=== PATIENT | female | born 1940 | race Caucasian/White ===

== ENCOUNTER → 2016-08-26 | Outpatient (CLI) | payer OTHER ==
[~2016-08-26] MED LIST: 'XANAX0.25 MG PO; ASPIRIN81 M1 PO; BENADRYL25 M1 PO; BENADRYL25 M2 PO; BENADRYL50 MG PO; CLARITIN10 MG PO; DIPHENHYDRAMINE25 M2 PO; DOXYCYCLINE MO100 M1 PO; LEVAQUIN750 MG PO; MUCINEX ER600 MG PO; MUCOUS RELIEF; MUCUS RELIEF DM1 TA1 PO; Medrol Dosepak4 MG PO; NICOTINE T21 MG/24 H T; PEPCID20 MG PO; PEPCID40 MG PO; PREDNICOT20 MG PO; PREDNISONE10 MG PO; PREDNISONE20 MG PO; PROTONIX TR40 MG PO; PROVENTIL0.09 MG/A1 INH; THE MEDICINE S400 IU PO; VALACYCLOVIR500 M1 PO; VICODIN ES 7501 TAB PO; ZANTAC 150150 MG PO
== END | disposition home or self-care (01) ==
LOC: CT 12:48
DX: J44.9 Chronic obstructive pulmonary disease, unspecified (principal); R06.02 Shortness of breath; J43.9 Emphysema, unspecified; F17.200 Nicotine dependence, unspecified, uncomplicated

== ENCOUNTER → 2017-01-05 | Outpatient (CLI) | payer OTHER | END | disposition home or self-care (01) | LOC: MAMMO 12:00 | DX: Z12.31 Encounter for screening mammogram for malignant neoplasm of breast (principal) ==

== ENCOUNTER 2018-01-23 12:48 | Inpatient (IN) | payer OTHER ==
[~2018-01-23] VITALS: Ht 165.1 cm; Wt 52.2 kg
[2018-01-23] VITALS (9 sets, daily range): BP systolic 89–133; BP diastolic 56–85
[2018-01-23 13:13] LABS: BASO # 0.1 10*3/uL (0.0-0.1); BASO % 1.4 % (0.0-1.0); EOS # 0.1 10*3/uL (0.0-0.4); EOS % 0.9 % (1.0-4.0); HEMATOCRIT 47.5 % (37.0-47.0); HEMOGLOBIN 15.1 g/dl (12.0-16.0); LYMPH # 2.6 10*3/uL (1.3-4.4); LYMPH % 29.9 % (27.0-41.0); MEAN CELL VOLUME 98.8 fl (81.0-99.0); MEAN CORPUSCULAR HGB 31.4 pg (27.0-31.0); MEAN CORPUSCULAR HGB CONC 31.8 g/dl (33.0-37.0); MEAN PLATELET VOLUME 10.6 fl (9.6-12.3); MONO # 0.8 10*3/uL (0.1-1.0); MONO % 8.7 % (3.0-9.0); NEUT # 5.2 10*3/uL (2.3-7.9); NEUT % 58.9 % (47.0-73.0); PLATELET COUNT AUTOMATED 296 10*3/uL (130-400); RED BLOOD COUNT 4.81 10*6/uL (4.10-5.10); RED CELL DISTRI WIDTH 13.5 % (0-14.5); WHITE BLOOD COUNT 8.8 10*3/uL (4.8-10.8)
[2018-01-23 13:34] LABS: ALBUMIN 3.7 gm/dl (3.1-4.5); CREATININE 1.1 mg/dL (0.55-1.02); POTASSIUM 5.6 mmol/L (3.5-5.1); TOTAL PROTEIN 7.7 gm/dL (6.4-8.2)
[2018-01-23 22:32] LABS: ALBUMIN 3.5 gm/dl (3.1-4.5); BUN 15 mg/dl (7-24); CHLORIDE 105 mmol/L (98-107); CREATININE 1.06 mg/dL (0.55-1.02); PHOSPHOROUS 3.2 mg/dL (2.5-4.9); POTASSIUM 4.4 mmol/L (3.5-5.1); SODIUM 139 mmol/L (136-145)
[2018-01-24] VITALS: BP 144/90
[2018-01-24 06:40] LABS: BASO % 0.2 % (0.0-1.0); HEMATOCRIT 43.9 % (37.0-47.0); HEMOGLOBIN 13.8 g/dl (12.0-16.0); LYMPH # 0.9 10*3/uL (1.3-4.4); MEAN CELL VOLUME 99.1 fl (81.0-99.0); MEAN CORPUSCULAR HGB 31.2 pg (27.0-31.0); MEAN CORPUSCULAR HGB CONC 31.4 g/dl (33.0-37.0); MEAN PLATELET VOLUME 10.8 fl (9.6-12.3); MONO # 0.3 10*3/uL (0.1-1.0); MONO % 4.5 % (3.0-9.0); PLATELET COUNT AUTOMATED 275 10*3/uL (130-400); RED BLOOD COUNT 4.43 10*6/uL (4.10-5.10); RED CELL DISTRI WIDTH 13.2 % (0-14.5); WHITE BLOOD COUNT 6.2 10*3/uL (4.8-10.8)
[2018-01-24 07:05] LABS: BUN 12 mg/dl (7-24); CHLORIDE 108 mmol/L (98-107); CHOLESTEROL 180 mg/dL (<200); CREATININE 1.01 mg/dL (0.55-1.02); PHOSPHOROUS 3.6 mg/dL (2.5-4.9); POTASSIUM 4.9 mmol/L (3.5-5.1); SODIUM 142 mmol/L (136-145); TRIGLYCERIDES 59 mg/dl (<150); VLDL CHOLESTEROL 12 mg/dL (6-40)
[2018-01-24 07:13] LABS: HDL CHOLESTEROL 70 mg/dl (40-60); LDL CHOLESTEROL 98 mg/dL (9-159); THYROID STIM HORMONE (HS) 0.561 uIU/ml (0.358-4.75)
[2018-01-24 08:00] VITALS: BP 118/65
[2018-01-24 08:42] LABS: VITAMIN D, 25-HYDROXY 39.1 ng/mL (30-100)
[2018-01-24 12:00] VITALS: BP 122/76
[2018-01-24 16:00] VITALS: BP 128/55
[2018-01-24 20:00] VITALS: BP 121/58
[2018-01-25] VITALS: BP 121/73
[2018-01-25 08:00] VITALS: BP 120/69
[2018-01-25] MEDS ORDERED: NEBULIZER DE (12:57)
[2018-01-25] MEDS ORDERED: PROVENTIL HFA6.7 GM INH (12:57)
[2018-01-25] MEDS ORDERED: Ipratropium Brom3 ML NEB (12:57)
[2018-01-25] MEDS ORDERED: PREDNISONE10 MG PO (12:57)
[2018-01-25] MEDS ORDERED: DULE1ARO INH (12:57)
[2018-01-25] MEDS ORDERED: LEVOFLOXACIN500 MG PO (12:57)
== END 2018-01-25 13:54 | disposition home or self-care (01) | DRG 682 ==
LOC: ED 12:48 → EDHOLD 16:04 → 5E 16:04
PROVIDERS: Emergency Medicine; Internal Medicine
DX: N17.0 Acute kidney failure with tubular necrosis (principal); J96.01 Acute respiratory failure with hypoxia; J44.1 Chronic obstructive pulmonary disease with (acute) exacerbation; E87.5 Hyperkalemia; E55.9 Vitamin D deficiency, unspecified; F41.9 Anxiety disorder, unspecified; F17.210 Nicotine dependence, cigarettes, uncomplicated; Z79.82 Long term (current) use of aspirin; Z79.899 Other long term (current) drug therapy; Z87.01 Personal history of pneumonia (recurrent); Z90.49 Acquired absence of other specified parts of digestive tract; Z88.8 Allergy status to other drugs, medicaments and biological substances; Z90.710 Acquired absence of both cervix and uterus; Z98.51 Tubal ligation status; Z82.49 Family history of ischemic heart disease and other diseases of the circulatory system; Z83.3 Family history of diabetes mellitus; Z80.9 Family history of malignant neoplasm, unspecified; Z71.6 Tobacco abuse counseling

== ENCOUNTER → 2018-06-30 | Outpatient (CLI) | payer OTHER ==
[~2018-06-30] MED LIST changes: +COMPLETE ALLERG25 M2 PO; +DULE1ARO INH; +Ipratropium Brom3 ML NEB; +LEVOFLOXACIN500 MG PO; +NEBULIZER DE; +PROVENTIL HFA6.7 GM INH
== END | disposition home or self-care (01) ==
LOC: RAD 06-20 16:29 → MAMMO 13:30
DX: Z12.31 Encounter for screening mammogram for malignant neoplasm of breast (principal); Z13.820 Encounter for screening for osteoporosis; K80.20 Calculus of gallbladder without cholecystitis without obstruction; M81.0 Age-related osteoporosis without current pathological fracture; Z78.0 Asymptomatic menopausal state; Z90.710 Acquired absence of both cervix and uterus

== ENCOUNTER 2019-01-17 11:26 | Emergency (ER) | payer OTHER ==
[~2019-01-17] VITALS: Ht 157.4 cm; Wt 46.7 kg
--- NOTE | ~2019-01-17 | EKG ---
[place], [place] ELECTROCARDIOGRAM REPORT NAME: DOMITILA EWING UNIT #: [id number] ROOM: DOCTOR: EPIPHANY DRAFT REPORT BIRTHDATE: [birth year] [facility] Test Date: 2019-01-17 Test Time: 12:23:16 Pat Name: DOMITILA EWING Department: Room: Gender: [place] Operator: : 1940 Requested By: JOY LAU DNP Order Number: [id number] Reading MD: Measurements Intervals [place] Rate: 73 P: 76 VT: 180 QRS: 266 QRSD: 94 T: 31 QT: 378 QTc: 417 Interpretive Statements Sinus rhythm Consider right atrial enlargement Left anterior fascicular block Low voltage, extremity leads No previous ECG available for comparison CM:EKGRPT:ELECTROCARDIOGRAM REPORT 1223 [id number] JOY CEJA DRAFT REPORT JOY LAU DNP
[2019-01-17 11:29] VITALS: BP 153/78
[2019-01-17 12:29] LABS: BASO # 0.1 10*3/uL (0.0-0.1); BASO % 0.7 % (0.0-1.0); EOS # 0.1 10*3/uL (0.0-0.4); EOS % 1.2 % (1.0-4.0); HEMATOCRIT 46.6 % (37.0-47.0); HEMOGLOBIN 15.1 g/dl (12.0-16.0); MEAN CELL VOLUME 97.3 fl (81.0-99.0); MEAN CORPUSCULAR HGB 31.5 pg (27.0-31.0); MEAN CORPUSCULAR HGB CONC 32.4 g/dl (33.0-37.0); MEAN PLATELET VOLUME 10.9 fl (9.6-12.3); MONO # 0.8 10*3/uL (0.1-1.0); MONO % 8.5 % (3.0-9.0); NEUT # 6.4 10*3/uL (2.3-7.9); NEUT % 68.3 % (47.0-73.0); PLATELET COUNT AUTOMATED 304 10*3/uL (130-400); RED BLOOD COUNT 4.79 10*6/uL (4.10-5.10); RED CELL DISTRI WIDTH 13.4 % (0-14.5); WHITE BLOOD COUNT 9.3 10*3/uL (4.8-10.8)
[2019-01-17 12:45] LABS: ALBUMIN 3.5 gm/dl (3.1-4.5); ALKALINE PHOSPHATASE 42 U/L (45-117); BUN 15 mg/dl (7-24); CHLORIDE 104 mmol/L (98-107); CREATININE 1.11 mg/dL (0.55-1.02); POTASSIUM 4.5 mmol/L (3.5-5.1); SGOT/AST 24 IU/L (3-35); SGPT/ALT 19 U/L (12-78); SODIUM 139 mmol/L (136-145)
[2019-01-17 12:47] LABS: TROPONIN I < 0.015 ng/ml (<0.045)
[2019-01-17] MEDS ORDERED: PREDNISONE50 MG PO (13:03)
[2019-01-17] MEDS ORDERED: TESSALON PERLE100 MG PO (13:03)
== END 2019-01-17 13:04 | disposition home or self-care (01) ==
LOC: ED 11:26
PROVIDERS: Nurse Practitioner Family
DX: J44.1 Chronic obstructive pulmonary disease with (acute) exacerbation (principal); F17.200 Nicotine dependence, unspecified, uncomplicated; Z88.8 Allergy status to other drugs, medicaments and biological substances; Z79.899 Other long term (current) drug therapy; Z79.82 Long term (current) use of aspirin; Z90.710 Acquired absence of both cervix and uterus; Z90.49 Acquired absence of other specified parts of digestive tract

== ENCOUNTER 2019-04-25 21:40 | Emergency (ER) | payer OTHER ==
[~2019-04-25] VITALS: Ht 157.4 cm; Wt 45.4 kg
[~2019-04-25 21:40] MED LIST changes: +PREDNISONE50 MG PO; +TESSALON PERLE100 MG PO
[2019-04-25 23:05] VITALS: BP 118/71
[2019-04-25 23:31] LABS: BASO % 0.3 % (0.0-1.0); EOS % 0.3 % (1.0-4.0); LYMPH # 1.3 10*3/uL (1.3-4.4); MEAN CELL VOLUME 99.3 fl (81.0-99.0); MEAN CORPUSCULAR HGB 31.6 pg (27.0-31.0); MEAN CORPUSCULAR HGB CONC 31.8 g/dl (33.0-37.0); MEAN PLATELET VOLUME 10.4 fl (9.6-12.3); MONO # 0.9 10*3/uL (0.1-1.0); MONO % 7.2 % (3.0-9.0); NEUT # 10.3 10*3/uL (2.3-7.9); NEUT % 81.7 % (47.0-73.0); PLATELET COUNT AUTOMATED 272 10*3/uL (130-400); RED BLOOD COUNT 4.43 10*6/uL (4.10-5.10); RED CELL DISTRI WIDTH 13.2 % (0-14.5); WHITE BLOOD COUNT 12.6 10*3/uL (4.8-10.8)
[2019-04-25 23:41] LABS: ACT PARTIAL THROMBO TIME 32.5 SECONDS (20.0-32.1); INTERNATIONAL NORM RATIO 0.9 (2.0-3.5)
[2019-04-25 23:47] LABS: ALBUMIN 3.3 gm/dl (3.1-4.5); ALKALINE PHOSPHATASE 43 U/L (45-117); BUN 14 mg/dl (7-24); CHLORIDE 105 mmol/L (98-107); CREATININE 1.12 mg/dL (0.55-1.02); POTASSIUM 3.8 mmol/L (3.5-5.1); SGOT/AST 14 IU/L (3-35); SGPT/ALT 17 U/L (12-78); SODIUM 137 mmol/L (136-145); TOTAL PROTEIN 6.6 gm/dL (6.4-8.2)
[2019-04-25 23:48] LABS: TROPONIN I < 0.015 ng/ml (<0.045)
[2019-04-26] MEDS ORDERED: ZITHROMAX250 MG PO (02:01)
== END 2019-04-26 02:16 | disposition home or self-care (01) ==
LOC: ED 21:40
PROVIDERS: Nurse Practitioner Family
DX: J06.9 Acute upper respiratory infection, unspecified (principal); J44.9 Chronic obstructive pulmonary disease, unspecified; F17.200 Nicotine dependence, unspecified, uncomplicated; Z88.8 Allergy status to other drugs, medicaments and biological substances; Z79.82 Long term (current) use of aspirin; Z79.899 Other long term (current) drug therapy

== ENCOUNTER → 2020-09-26 | Outpatient (CLI) | payer OTHER ==
[~2020-09-26] MED LIST changes: +ZITHROMAX250 MG PO
[2020-09-26 09:45] LABS: HEMATOCRIT 45.2 % (37.0-47.0); MEAN CELL VOLUME 99.1 fl (81.0-99.0); MEAN CORPUSCULAR HGB 31.4 pg (27.0-31.0); MEAN CORPUSCULAR HGB CONC 31.6 g/dl (33.0-37.0); MEAN PLATELET VOLUME 10.1 fl (9.6-12.3); RED BLOOD COUNT 4.56 10*6/uL (4.10-5.10); RED CELL DISTRI WIDTH 13.6 % (0-14.5)
[2020-09-26 10:27] LABS: ALBUMIN 3.2 gm/dl (3.1-4.5); CREATININE 1.09 mg/dL (0.55-1.02); POTASSIUM 4.1 mmol/L (3.5-5.1); TOTAL PROTEIN 7.1 gm/dL (6.4-8.2)
== END | disposition home or self-care (01) ==
LOC: LAB 09:17
PROVIDERS: ATTEND Physician Assistant
DX: J44.9 Chronic obstructive pulmonary disease, unspecified (principal); M81.0 Age-related osteoporosis without current pathological fracture; E78.00 Pure hypercholesterolemia, unspecified; F17.210 Nicotine dependence, cigarettes, uncomplicated

== ENCOUNTER 2020-12-23 10:21 | Inpatient (IN) | payer OTHER ==
[~2020-12-23] VITALS: Ht 154.9 cm; Wt 45.8 kg
[2020-12-23 10:48] VITALS: BP 97/60
[2020-12-23 11:44] LABS: BASO # 0.1 10*3/uL (0.0-0.1); BASO % 0.4 % (0.0-1.0); EOS # 0.1 10*3/uL (0.0-0.4); EOS % 0.4 % (1.0-4.0); HEMATOCRIT 41.7 % (37.0-47.0); LYMPH # 1.4 10*3/uL (1.3-4.4); MEAN CELL VOLUME 97.2 fl (81.0-99.0); MEAN CORPUSCULAR HGB CONC 31.9 g/dl (33.0-37.0); MONO # 1.2 10*3/uL (0.1-1.0); MONO % 9.8 % (3.0-9.0); NEUT # 9.2 10*3/uL (2.3-7.9); NEUT % 76.9 % (47.0-73.0); PLATELET COUNT AUTOMATED 360 10*3/uL (130-400); RED BLOOD COUNT 4.29 10*6/uL (4.10-5.10); RED CELL DISTRI WIDTH 13.1 % (0-14.5)
[2020-12-23 12:00] LABS: ALKALINE PHOSPHATASE 54 U/L (45-117); BUN 10 mg/dl (7-24); CHLORIDE 105 mmol/L (98-107); CREATININE 0.73 mg/dL (0.55-1.02); POTASSIUM 4.7 mmol/L (3.5-5.1); SGOT/AST 19 IU/L (3-35); SGPT/ALT 25 U/L (12-78); SODIUM 138 mmol/L (136-145); TOTAL PROTEIN 7.3 gm/dL (6.4-8.2)
[2020-12-23 12:08] LABS: TROPONIN I < 0.015 ng/ml (<0.045)
[2020-12-23 17:56] VITALS: BP 107/69
[2020-12-23 20:00] VITALS: BP 121/77
[2020-12-24] VITALS: BP 99/58
[2020-12-24 04:21] VITALS: BP 100/60
[2020-12-24 06:37] LABS: BASO % 0.4 % (0.0-1.0); EOS % 0.1 % (1.0-4.0); HEMATOCRIT 35.7 % (37.0-47.0); LYMPH # 1.6 10*3/uL (1.3-4.4); LYMPH % 16.4 % (27.0-41.0); MEAN CELL VOLUME 97.5 fl (81.0-99.0); MEAN CORPUSCULAR HGB 30.9 pg (27.0-31.0); MEAN CORPUSCULAR HGB CONC 31.7 g/dl (33.0-37.0); MEAN PLATELET VOLUME 10.3 fl (9.6-12.3); MONO % 10.5 % (3.0-9.0); NEUT % 71.8 % (47.0-73.0); PLATELET COUNT AUTOMATED 317 10*3/uL (130-400); RED BLOOD COUNT 3.66 10*6/uL (4.10-5.10); RED CELL DISTRI WIDTH 12.9 % (0-14.5); WHITE BLOOD COUNT 9.8 10*3/uL (4.8-10.8)
[2020-12-24 06:50] LABS: ALBUMIN 2.7 gm/dl (3.1-4.5); ALKALINE PHOSPHATASE 44 U/L (45-117); BUN 14 mg/dl (7-24); CHLORIDE 104 mmol/L (98-107); CREATININE 0.75 mg/dL (0.55-1.02); POTASSIUM 4.2 mmol/L (3.5-5.1); SGOT/AST 17 IU/L (3-35); SGPT/ALT 22 U/L (12-78); SODIUM 137 mmol/L (136-145); TOTAL PROTEIN 6.4 gm/dL (6.4-8.2)
[2020-12-24 08:00] VITALS: BP 122/73
[2020-12-24] MEDS ORDERED: DOXYCYCLINE100 M3 PO (10:45)
[2020-12-24] MEDS ORDERED: PREDNISONE10 MG PO (10:45)
== END 2020-12-24 11:11 | disposition home or self-care (01) | DRG 178 ==
LOC: ED 10:21 → EDHOLD 13:10 → 4E 17:15
PROVIDERS: Emergency Medicine; Internal Medicine; ADMIT Student in an Organized Health Care Education/Training Program; ATTEND Student in an Organized Health Care Education/Training Program
DX: J15.6 Pneumonia due to other Gram-negative bacteria (principal); E44.0 Moderate protein-calorie malnutrition; Z68.1 Body mass index [BMI] 19.9 or less, adult; J43.9 Emphysema, unspecified; M85.80 Other specified disorders of bone density and structure, unspecified site; Z71.6 Tobacco abuse counseling; F41.9 Anxiety disorder, unspecified; E55.9 Vitamin D deficiency, unspecified; J30.9 Allergic rhinitis, unspecified; Z88.8 Allergy status to other drugs, medicaments and biological substances; F17.210 Nicotine dependence, cigarettes, uncomplicated; Z79.82 Long term (current) use of aspirin; Z79.899 Other long term (current) drug therapy; Z79.2 Long term (current) use of antibiotics; Z90.710 Acquired absence of both cervix and uterus; Z98.51 Tubal ligation status; Z90.49 Acquired absence of other specified parts of digestive tract

== ENCOUNTER → 2021-10-21 | Outpatient (CLI) | payer OTHER ==
[~2021-10-21] MED LIST changes: +DOXYCYCLINE100 M3 PO
== END | disposition home or self-care (01) ==
LOC: RAD 15:58
PROVIDERS: ATTEND General Practice
DX: M51.36 Other intervertebral disc degeneration, lumbar region (principal); M41.26 Other idiopathic scoliosis, lumbar region; M25.78 Osteophyte, vertebrae; M47.816 Spondylosis without myelopathy or radiculopathy, lumbar region; M48.061 Spinal stenosis, lumbar region without neurogenic claudication

== ENCOUNTER → 2022-07-08 | Outpatient (CLI) | payer OTHER | END | disposition home or self-care (01) | LOC: US 14:00 | PROVIDERS: ATTEND Physician Assistant | DX: R10.2 Pelvic and perineal pain (principal); Z90.710 Acquired absence of both cervix and uterus ==

== ENCOUNTER → 2022-07-27 | Outpatient (CLI) | payer OTHER | END | disposition home or self-care (01) | LOC: RAD 00:55 → CT 14:00 | PROVIDERS: ATTEND Physician Assistant | DX: K80.20 Calculus of gallbladder without cholecystitis without obstruction (principal); M81.0 Age-related osteoporosis without current pathological fracture; N20.0 Calculus of kidney; J44.9 Chronic obstructive pulmonary disease, unspecified; M47.816 Spondylosis without myelopathy or radiculopathy, lumbar region ==

== ENCOUNTER 2022-08-18 09:02 | Emergency (ER) | payer OTHER ==
[~2022-08-18] VITALS: Ht 157.4 cm; Wt 46.3 kg
[2022-08-18 09:24] VITALS: BP 113/78
[2022-08-18 11:05] LABS: BILIRUBIN Negative (Negative); BLOOD Negative (Negative); CLARITY Clear (Clear); COLOR Yellow (Yellow); GLUCOSE Negative (Negative); KETONE Negative (Negative); LEUKO ESTERASE Negative (Negative); NITRITE Negative (Negative); UROBILINOGEN 0.2 E.U./dl (0.0-1.0)
[2022-08-18 11:22] LABS: BACTERIA 2+; WBC 0-2 wbc/hpf (0-5)
[2022-08-18 12:07] LABS: BASO # 0.1 10*3/uL (0.0-0.1); BASO % 1.2 % (0.0-1.0); EOS # 0.2 10*3/uL (0.0-0.4); EOS % 2.3 % (1.0-4.0); HEMATOCRIT 45.8 % (37.0-47.0); LYMPH # 1.9 10*3/uL (1.3-4.4); LYMPH % 29.1 % (27.0-41.0); MEAN CELL VOLUME 100.7 fl (81.0-99.0); MEAN CORPUSCULAR HGB 31.6 pg (27.0-31.0); MEAN CORPUSCULAR HGB CONC 31.4 g/dl (33.0-37.0); MEAN PLATELET VOLUME 10.2 fl (9.6-12.3); MONO # 0.6 10*3/uL (0.1-1.0); MONO % 9.1 % (3.0-9.0); NEUT # 3.7 10*3/uL (2.3-7.9); NEUT % 58.1 % (47.0-73.0); PLATELET COUNT AUTOMATED 301 10*3/uL (130-400); RED BLOOD COUNT 4.55 10*6/uL (4.10-5.10); RED CELL DISTRI WIDTH 13.4 % (0-14.5); WHITE BLOOD COUNT 6.5 10*3/uL (4.8-10.8)
[2022-08-18 12:24] LABS: ALKALINE PHOSPHATASE 39 U/L (46-116); BUN 8 mg/dl (9-23); CHLORIDE 104 mmol/L (98-107); LIPASE 29 U/L (12-53); POTASSIUM 4.8 mmol/L (3.4-5.1); SGPT/ALT 16 U/L (10-49); TOTAL PROTEIN 6.8 gm/dL (6.0-8.0)
== END 2022-08-18 16:15 | disposition home or self-care (01) ==
LOC: ED 09:02
PROVIDERS: Internal Medicine
DX: K80.20 Calculus of gallbladder without cholecystitis without obstruction (principal); J44.9 Chronic obstructive pulmonary disease, unspecified; Z88.8 Allergy status to other drugs, medicaments and biological substances; Z90.49 Acquired absence of other specified parts of digestive tract; Z90.711 Acquired absence of uterus with remaining cervical stump; Z98.51 Tubal ligation status; Z98.890 Other specified postprocedural states

== ENCOUNTER 2022-09-08 09:49 | Inpatient (IN) | payer OTHER ==
[~2022-09-08] VITALS: Ht 157.4 cm; Wt 47.7 kg
[2022-09-08 09:55] VITALS: BP 120/80
[2022-09-08 10:17] LABS: BASO # 0.1 10*3/uL (0.0-0.1); BASO % 1.5 % (0.0-1.0); EOS # 0.2 10*3/uL (0.0-0.4); EOS % 3.2 % (1.0-4.0); HEMATOCRIT 44.5 % (37.0-47.0); LYMPH # 2.2 10*3/uL (1.3-4.4); MEAN CELL VOLUME 98.2 fl (81.0-99.0); MEAN CORPUSCULAR HGB 32.5 pg (27.0-31.0); MEAN PLATELET VOLUME 10.1 fl (9.6-12.3); MONO # 0.6 10*3/uL (0.1-1.0); MONO % 8.9 % (3.0-9.0); NEUT % 56.1 % (47.0-73.0); PLATELET COUNT AUTOMATED 306 10*3/uL (130-400); RED BLOOD COUNT 4.53 10*6/uL (4.10-5.10); RED CELL DISTRI WIDTH 13.4 % (0-14.5); WHITE BLOOD COUNT 7.2 10*3/uL (4.8-10.8)
[2022-09-08 10:29] LABS: ACT PARTIAL THROMBO TIME 29.9 SECONDS (20.0-32.1)
[2022-09-08 10:42] LABS: ALKALINE PHOSPHATASE 34 U/L (46-116); BUN 11 mg/dl (9-23); CHLORIDE 105 mmol/L (98-107); LIPASE 38 U/L (12-53); POTASSIUM 4.8 mmol/L (3.4-5.1); SGPT/ALT 10 U/L (10-49)
[2022-09-08] MEDS ORDERED: ALENDRONATE SOD70 M1 PO (17:50)
[2022-09-08 17:55] VITALS: BP 128/49
[2022-09-08] MEDS ORDERED: Ipratropium Brom3 ML INH (18:05)
[2022-09-08] MEDS ORDERED: MUCINEX1200 M1 PO (18:08)
[2022-09-08] MEDS ORDERED: STOOL SOFTENER100 MG PO (18:10)
[2022-09-08] MEDS ORDERED: VITAMIN C500 M4 PO (18:11)
[2022-09-08 20:00] VITALS: BP 114/69
[2022-09-09] VITALS (10 sets, daily range): BP systolic 111–141; BP diastolic 57–79
[2022-09-09 06:29] LABS: BASO # 0.1 10*3/uL (0.0-0.1); BASO % 1.2 % (0.0-1.0); EOS # 0.3 10*3/uL (0.0-0.4); EOS % 5.3 % (1.0-4.0); HEMATOCRIT 41.8 % (37.0-47.0); LYMPH # 2.4 10*3/uL (1.3-4.4); MEAN CELL VOLUME 100.5 fl (81.0-99.0); MEAN CORPUSCULAR HGB 31.7 pg (27.0-31.0); MEAN CORPUSCULAR HGB CONC 31.6 g/dl (33.0-37.0); MEAN PLATELET VOLUME 10.7 fl (9.6-12.3); MONO # 0.7 10*3/uL (0.1-1.0); MONO % 10.9 % (3.0-9.0); NEUT # 2.7 10*3/uL (2.3-7.9); NEUT % 43.4 % (47.0-73.0); PLATELET COUNT AUTOMATED 270 10*3/uL (130-400); RED BLOOD COUNT 4.16 10*6/uL (4.10-5.10); RED CELL DISTRI WIDTH 13.3 % (0-14.5); WHITE BLOOD COUNT 6.1 10*3/uL (4.8-10.8)
[2022-09-09 06:59] LABS: BUN 8 mg/dl (9-23); CHLORIDE 110 mmol/L (98-107); CHOLESTEROL 143 mg/dL (<200); FREE T4 1.09 ng/dl (0.89-1.76); LDL CHOLESTEROL 72 mg/dL (9-159); POTASSIUM 4.8 mmol/L (3.4-5.1); THYROID STIM HORMONE (HS) 4.114 uIU/ml (0.550-4.780); TRIGLYCERIDES 76 mg/dl (<150)
[2022-09-10] VITALS: BP 108/57
[2022-09-10 08:00] VITALS: BP 115/59
[2022-09-10] MEDS ORDERED: COLACE100 MG PO (09:48)
[2022-09-10] MEDS ORDERED: HYDROCODONE-AC1 EAC1 PO (09:48)
== END 2022-09-10 11:48 | disposition home or self-care (01) | DRG 418 ==
LOC: ED 09:49 → EDHOLD 11:40 → 4E 11:40 → EDHOLD 13:07 → 4E 17:20
PROVIDERS: Emergency Medicine; Student in an Organized Health Care Education/Training Program; ADMIT Internal Medicine; ATTEND Internal Medicine
PROC: 0FT44ZZ Resection of Gallbladder, Percutaneous Endoscopic Approach (ICD-10-PCS; principal; 2022-09-09)
PROC: 3E0T3BZ Introduction of Anesthetic Agent into Peripheral Nerves and Plexi, Percutaneous Approach (ICD-10-PCS; 2022-09-09)
DX: K80.18 Calculus of gallbladder with other cholecystitis without obstruction (principal); Z68.1 Body mass index [BMI] 19.9 or less, adult; J30.9 Allergic rhinitis, unspecified; J44.9 Chronic obstructive pulmonary disease, unspecified; F41.9 Anxiety disorder, unspecified; F17.210 Nicotine dependence, cigarettes, uncomplicated; E55.9 Vitamin D deficiency, unspecified; N18.31 Chronic kidney disease, stage 3a; R09.02 Hypoxemia; D75.89 Other specified diseases of blood and blood-forming organs; Z71.6 Tobacco abuse counseling; Z88.8 Allergy status to other drugs, medicaments and biological substances

== ENCOUNTER → 2023-04-09 | Outpatient (CLI) | payer OTHER ==
[~2023-04-09] MED LIST changes: +ALENDRONATE SOD70 M1 PO; +COLACE100 MG PO; +HYDROCODONE-AC1 EAC1 PO; +Ipratropium Brom3 ML INH; +MUCINEX1200 M1 PO; +STOOL SOFTENER100 MG PO; +VITAMIN C500 M4 PO
== END | disposition home or self-care (01) ==
LOC: CT 11:00
PROVIDERS: ATTEND Surgery
DX: K44.9 Diaphragmatic hernia without obstruction or gangrene (principal); K46.9 Unspecified abdominal hernia without obstruction or gangrene; I70.0 Atherosclerosis of aorta; K57.30 Diverticulosis of large intestine without perforation or abscess without bleeding; M41.85 Other forms of scoliosis, thoracolumbar region; N32.89 Other specified disorders of bladder; Z90.49 Acquired absence of other specified parts of digestive tract

== ENCOUNTER → 2023-12-21 | Outpatient (CLI) | payer OTHER ==
[~2023-12-21] MED LIST changes: +IOHEXOL 300 MG/ML 100 ML VIAL IV ONE
== END | disposition home or self-care (01) ==
LOC: CT 01:35
PROVIDERS: ATTEND Surgery
DX: R10.10 Upper abdominal pain, unspecified (principal); I70.0 Atherosclerosis of aorta; M47.816 Spondylosis without myelopathy or radiculopathy, lumbar region; M51.36 Other intervertebral disc degeneration, lumbar region; Z90.49 Acquired absence of other specified parts of digestive tract; Z90.710 Acquired absence of both cervix and uterus